=== PATIENT | female | born 1980 | race American Indian/Alaskan Native ===

== ENCOUNTER 2018-10-01 15:29 | Emergency (ER) | payer BC ==
[2018-10-01 15:58] VITALS: BP 124/74
--- NOTE | 2018-10-01 16:01 | Emergency Department Report ---
Blank Doc - Documentation Documentation: This is a 37-year-old female that presents with shortness of breathe with tigh tness chest pain. Patient denies any chest pain. PMH: DVT, PE This initial assessment diagnostic orders/clinical plan/treatment(s) is/are subject to change based on patient's health status, clinical progression and re- assessment by fellow clinical providers in the ED. Further treatment and workup at subsequent clinical providers discretion. Patient/guardians urged not to elope from ED s their condition may be serious if not clinically assessed and managed. Initial orders include: 1-Patient sent to [facility] for further evaluation and treatment 2- Labs 3- EKG
--- NOTE | 2018-10-01 16:34 | XRay Report ---
FINAL REPORT EXAM: XR CHEST ROUTINE 2V HISTORY: Dyspnea TECHNIQUE: Two view chest PA and lateral PRIORS: None. FINDINGS: Cardiac and mediastinal contours are unremarkable. No focal pulmonary infiltrate is identified. No pleural fluid collection seen. Pulmonary vasculature is unremarkable. IMPRESSION: Negative two-view chest
[2018-10-01 17:32] LABS: Basophils % (Auto) 0.6 % (0.0-1.8); Eosinophils # (Auto) 0.2 K/mm3 (0.0-0.4); Eosinophils % (Auto) 3.3 % (0.0-4.3); Hemoglobin 13.6 gm/dl (10.1-14.3); Lymphocytes # (Auto) 1.6 K/mm3 (1.2-5.4); Lymphocytes % (Auto) 31.6 % (13.4-35.0); Mean Corpuscular HGB Conc 34 % (30-34); Mean Corpuscular Volume 75 fl (79-97); Monocytes # (Auto) 0.5 K/mm3 (0.0-0.8); Monocytes % (Auto) 8.8 % (0.0-7.3); Platelet Count 216 K/mm3 (140-440); Red Blood Count 5.33 M/mm3 (3.65-5.03); Red Cell Distribution Width 14.3 % (13.2-15.2)
[2018-10-01 17:47] LABS: BUN/Creatinine Ratio 18; Blood Urea Nitrogen 11 mg/dL (7-17); Calcium 8.9 mg/dL (8.4-10.2); Creatine Kinase MB 1.4 ng/mL (0.0-4.0); Hemolysis Index 5
[2018-10-01 18:03] LABS: INR 0.94 (0.87-1.13)
[2018-10-01 18:04] LABS: Partial Thromboplastin Time 28.7 Sec. (24.2-36.6)
--- NOTE | 2018-10-01 22:45 | Emergency Department Report ---
ED Chest Pain HPI - General Chief Complaint: Dyspnea/Respdistress Stated Complaint: SOB Time Seen by Provider: 10/01/18 15:59 Source: patient Mode of arrival: Ambulatory Limitations: No Limitations - History of Present Illness Severity scale (0 -10): 0 - Related Data Previous Rx's Medication Instructions Recorded Last Taken Type Aspirin [Aspirin BABY CHEW TAB] 81 mg PO QDAY #30 tab.chew 10/01/18 Unknown Rx Allergies Allergy/AdvReac Type Severity Reaction Status Date / Time No Known Allergies Allergy Unverified 10/01/18 15:57 Heart Score - HEART Score History: Slightly suspicious EKG: Normal Age: < 45 Risk factors: No known risk factors Troponin: < normal limit HEART Score: 0 ED Review of Systems ROS: Stated complaint: SOB Other details as noted in HPI Constitutional: denies: chills, fever Eyes: denies: eye pain, eye discharge, vision change ENT: denies: ear pain, throat pain Respiratory: denies: cough, shortness of breath, wheezing Cardiovascular: chest pain. denies: palpitations Endocrine: no symptoms reported Gastrointestinal: denies: abdominal pain, nausea, diarrhea Genitourinary: denies: urgency, dysuria, discharge Musculoskeletal: denies: back pain, joint swelling, arthralgia Skin: denies: rash, lesions Neurological: denies: headache, weakness, paresthesias Psychiatric: denies: anxiety, depression Hematological/Lymphatic: denies: easy bleeding, easy bruising ED Past Medical Hx - Past Medical History Previous Medical History?: Yes Hx Deep Vein Thrombosis: Yes Hx Pulmonary Embolism: Yes - Surgical History Past Surgical History?: No - Social History Smoking Status: Never Smoker Substance Use Type: None - Medications Home Medications: Home Medications Medication Instructions Recorded Confirmed Last Taken Type Aspirin [Aspirin BABY CHEW TAB] 81 mg PO QDAY #30 tab.chew 10/01/18 Unknown Rx ED Physical Exam - General Limitations: No Limitations General appearance: alert, in no apparent distress - Head Head exam: Present: atraumatic, normocephalic, normal inspection - Eye Eye exam: Present: normal appearance, PERRL, EOMI. Absent: scleral icterus, conjunctival injection Pupils: Present: normal accommodation - ENT ENT exam: Present: normal exam, normal orophraynx, mucous membranes moist, TM's normal bilaterally - Neck Neck exam: Present: normal inspection, tenderness, full ROM - Respiratory Respiratory exam: Present: normal lung sounds bilaterally. Absent: respiratory distress, wheezes, rales, chest wall tenderness, accessory muscle use, decreased breath sounds - Cardiovascular Cardiovascular Exam: Present: regular rate, normal rhythm. Absent: systolic murmur, diastolic murmur, rubs, gallop - GI/Abdominal GI/Abdominal exam: Present: soft, normal bowel sounds. Absent: distended, tenderness, guarding, rebound, hyperactive bowel sounds, hypoactive bowel sounds, organomegaly, mass, bruit - Extremities Exam Extremities exam: Present: normal inspection, full ROM, normal capillary refill - Back Exam Back exam: Present: normal inspection, full ROM. Absent: CVA tenderness (R), CVA tenderness (L) - Neurological Exam Neurological exam: Present: alert, oriented X3, CN II-XII intact, normal gait - Psychiatric Psychiatric exam: Present: normal affect, normal mood - Skin Skin exam: Present: warm, dry, intact, normal color. Absent: rash ED Course Vital Signs 10/01/18 15:57 Temperature 99.1 F Pulse Rate 103 H Respiratory 18 Rate Blood Pressure 124/74 O2 Sat by Pulse 100 Oximetry JAYLEN score - Jaylen Score Age > 65: (0) No Aspirin use within the Past 7 Days: (0) No 3 or more CAD Risk Factors: (0) No 2 or more Angina events in past 24 hrs: (0) No Known CAD with more than 50% Stenosis: (0) No Elevated Cardiac Markers: (0) No ST Deviation Greater than 0.5mm: (0) No JAYLEN Score: 0 ED Medical Decision Making - Lab Data Result diagrams: 10/01/18 16:39 10/01/18 16:39 Critical care attestation.: If time is entered above; I have spent that time in minutes in the direct care of this critically ill patient, excluding procedure time. ED Disposition Disposition: - TO HOME OR SELFCARE Condition: Stable Instructions: Angina (ED), Chest Pain (ED), Dyspnea (ED) Prescriptions: Aspirin [Aspirin BABY CHEW TAB] 81 mg PO QDAY #30 tab.chew Referrals: JAI CLAYTON MD [Staff Physician] - 3-5 Days (Urine follow cardiology for exercise stress test)
== END 2018-10-01 22:45 | disposition home or self-care (01) ==
LOC: ED 15:29
DX: R06.00 Dyspnea, unspecified (principal); Z86.718 Personal history of other venous thrombosis and embolism; Z86.711 Personal history of pulmonary embolism
CPT/HCPCS: 36415; 71046; 80048; 82550; 82553; 84484; 85025; 85379; 85610; 85730; 93005; 93010

== ENCOUNTER 2019-02-02 06:47 | Emergency (ER) | payer BC ==
--- NOTE | 2019-02-02 09:07 | Vascular Lab Report ---
PROCEDURE: VL VENOUS DUPLEX LE LT TECHNIQUE: Grayscale, color and spectral Doppler ultrasound evaluation of the left lower extremity f or DVT HISTORY: pain, swelling COMPARISONS: None FINDINGS: The deep veins in the left lower extremity above the knee demonstrate normal compression, color Doppl er appearance and spectral Doppler waveforms. Normal respiratory variation and response to augmentati on also demonstrated above the knee (where performed.) There is noncompressibility demonstrated in th e proximal left posterior tibial vein. IMPRESSION: Thrombosis of the proximal left posterior tibial vein. No sonographic evidence of DVT in the imaged portions of the left lower extremity above the knee. Dr. Pedraza discussed findings with Dr. Starr at 0804 [address] Time on 02/02/2019 immediately following the examination. This document is electronically signed by Jose Pedraza MD., February 02 2019 09:05:46 AM ET
--- NOTE | 2019-02-02 09:35 | Emergency Department Report ---
ED Extremity Problem HPI - General Chief complaint: Extremity Problem,Nontraumatic Stated complaint: LT LEG SWELLING Time Seen by Provider: 02/02/19 08:48 Source: patient Mode of arrival: Ambulatory Limitations: No Limitations - History of Present Illness Initial comments: Patient is a 38-year-old Female who has a past history of a DVT 7 years ago during who is presenting with left calf pain. Patient states pain started 2-3 days ago. She does notice some subjective swelling. States the pain is a 6 out of 10 in severity and doesn't radiate down to her ankle. Patient denies any chest pain shortness of breath fevers chills or trauma. Improves with: nothing Worsens with: walking - Related Data Previous Rx's Medication Instructions Recorded Last Taken Type Aspirin [Aspirin BABY CHEW TAB] 81 mg PO QDAY #30 tab.chew 10/01/18 Unknown Rx Apixaban [Eliquis] 5 mg PO BID #45 tablet 02/02/19 Unknown Rx traMADol [Ultram] 50 mg PO Q6HR PRN #15 tablet 02/02/19 Unknown Rx Allergies Allergy/AdvReac Type Severity Reaction Status Date / Time No Known Allergies Allergy Unverified 10/01/18 15:57 ED Review of Systems ROS: Stated complaint: LT LEG SWELLING Other details as noted in HPI Comment: All other systems reviewed and negative ED Past Medical Hx - Past Medical History Previous Medical History?: Yes Hx Deep Vein Thrombosis: Yes Hx Pulmonary Embolism: Yes - Surgical History Past Surgical History?: No - Social History Smoking Status: Never Smoker Substance Use Type: None - Medications Home Medications: Home Medications Medication Instructions Recorded Confirmed Last Taken Type Aspirin [Aspirin BABY CHEW TAB] 81 mg PO QDAY #30 tab.chew 10/01/18 Unknown Rx Apixaban [Eliquis] 5 mg PO BID #45 tablet 02/02/19 Unknown Rx traMADol [Ultram] 50 mg PO Q6HR PRN #15 tablet 02/02/19 Unknown Rx ED Physical Exam - General Limitations: No Limitations General appearance: alert, in no apparent distress - Head Head exam: Present: atraumatic, normocephalic - Eye Eye exam: Present: normal appearance - ENT ENT exam: Present: mucous membranes moist - Neck Neck exam: Present: normal inspection - Respiratory Respiratory exam: Present: normal lung sounds bilaterally. Absent: respiratory distress, wheezes, rales, rhonchi - Cardiovascular Cardiovascular Exam: Present: regular rate, normal rhythm. Absent: systolic murmur, diastolic murmur, rubs, gallop - GI/Abdominal GI/Abdominal exam: Present: soft, normal bowel sounds. Absent: distended, tenderness, guarding, rebound - Extremities Exam Extremities exam: Present: normal inspection - Expanded Lower Extremity Exam Left Lower Leg exam: Present: full ROM, tenderness (on palpation). Absent: swelling, abrasion, ecchymosis, deformity, crepidus, erythema, palpable cord - Back Exam Back exam: Present: normal inspection - Neurological Exam Neurological exam: Present: alert, oriented X3 - Psychiatric Psychiatric exam: Present: normal affect, normal mood - Skin Skin exam: Present: warm, dry, intact, normal color. Absent: rash ED Medical Decision Making - Radiology Data [facility] [address] [place] [address] Vascular Lab Report Signed Patient: DORIS PATINO MR#: [id number] 5 : 1980 Acct:[id number] Age/Sex: 38 / F ADM Date: 02/02/19 Loc: ED Attending Dr: Ordering Physician: DANIEL STARR MD Date of Service: 02/02/19 Procedure(s): venous duplex LE LT Accession Number(s): [id number] cc: DANIEL STARR MD PROCEDURE: VENOUS DUPLEX LE LT TECHNIQUE: Grayscale, color and spectral Doppler ultrasound evaluation of the left lower extremity for DVT HISTORY: pain, swelling COMPARISONS: None FINDINGS: The deep veins in the left lower extremity above the knee demonstrate normal compression, color Doppler appearance and spectral Doppler waveforms. Normal respiratory variation and response to augmentation also demonstrated above the knee (where performed.) There is noncompressibility demonstrated in the proximal left posterior tibial vein. IMPRESSION: Thrombosis of the proximal left posterior tibial vein. No sonographic evidence of DVT in the imaged portions of the left lower extremity above the knee. Dr. Hoang discussed findings with Dr. Starr at [address] Time on 02/02/2019 immediately following the examination. This document is electronically signed by Jose Hoang MD., February 02 2019 09:05:46 AM ET Transcribed By: MB Dictated By: JOSE HOANG MD Electronically Authenticated By: JOSE HOANG MD Signed Date/Time: 02/02/19906 DD/ 0 TD/TT: 02/02/19841 - Medical Decision Making Patient does show evidence of a proximal posterior tibial DVT. Patient started on liquids and she'll be given follow-up with primary care. Critical care attestation.: If time is entered above; I have spent that time in minutes in the direct care of this critically ill patient, excluding procedure time. ED Disposition Clinical Impression: Acute DVT (deep venous thrombosis) Qualifiers: DVT location: lower extremity Affected thrombotic vein of extremity: tibial Laterality: left Qualified Code(s): I82.442 - Acute embolism and thrombosis of left tibial vein Disposition: - TO HOME OR SELFCARE Is pt being admited?: No Does the pt Need Aspirin: No Condition: Stable Referrals: ELLY MOODY MD [Staff Physician] - 3-5 Days Forms: Work/School Release Form(ED) Time of Disposition: 09:32
== END 2019-02-02 09:53 | disposition home or self-care (01) ==
LOC: ED 06:47
DX: I82.4Z2 Acute embolism and thrombosis of unspecified deep veins of left distal lower extremity (principal); Z79.82 Long term (current) use of aspirin; Z79.899 Other long term (current) drug therapy
CPT/HCPCS: 99283

== ENCOUNTER 2019-02-10 05:01 | Emergency (ER) | payer BC ==
[2019-02-10 05:42] LABS: Basophils % (Auto) 0.5 % (0.0-1.8); Eosinophils # (Auto) 0.2 K/mm3 (0.0-0.4); Eosinophils % (Auto) 4.6 % (0.0-4.3); Hematocrit 40.9 % (30.3-42.9); Hemoglobin 13.8 gm/dl (10.1-14.3); Lymphocytes # (Auto) 1.5 K/mm3 (1.2-5.4); Lymphocytes % (Auto) 28.2 % (13.4-35.0); Mean Corpuscular HGB Conc 34 % (30-34); Mean Corpuscular Volume 75 fl (79-97); Monocytes # (Auto) 0.5 K/mm3 (0.0-0.8); Monocytes % (Auto) 9.2 % (0.0-7.3); Platelet Count 285 K/mm3 (140-440); Red Blood Count 5.43 M/mm3 (3.65-5.03); Red Cell Distribution Width 14.2 % (13.2-15.2)
[2019-02-10 05:43] LABS: Bilirubin,Urine NEG (Negative); Blood,Urine NEG (Negative); Color,Urine Yellow (Yellow); Protein,Urine <15 mg/dL mg/dL (Negative); Urobilinogen,Urine < 2.0 mg/dL (<2.0); WBC,Urine < 1.0 /HPF (0.0-6.0)
[2019-02-10 06:03] LABS: Alanine Aminotransferase 8 units/L (7-56); Albumin 4.2 g/dL (3.9-5); BUN/Creatinine Ratio 14; Blood Urea Nitrogen 10 mg/dL (7-17); Calcium 9.2 mg/dL (8.4-10.2); Hemolysis Index 11
[2019-02-10] MEDS ORDERED: TORADOL IV ONE (07:18)
[2019-02-10] MEDS ORDERED: NACL 0.9% 1000 ML 1,000 ML IV ONE (07:18)
--- NOTE | 2019-02-10 08:31 | Emergency Department Report ---
ED Abdominal Pain HPI - General Chief Complaint: Abdominal Pain Stated Complaint: LOWER ABD PAIN Time Seen by Provider: 02/10/19 07:11 Source: patient Mode of arrival: Ambulatory Limitations: No Limitations - History of Present Illness Initial Comments: Patient is a 38-year-old female who presents to emergency room with complaints of suprapubic and right lower quadrant abdominal pain that began 4 days ago. She denies any nausea, vomiting, diarrhea, urinary symptoms, vaginal discharge or vaginal irritation. She states she had a normal bowel movement Yesterday. denies allergies to medications. Past medical history of DVT and on eliquis per patient. Her only abdominal surgery is a tubal ligation. Last menstrual cycle was January 31. Severity scale (0 -10): 9 - Related Data Previous Rx's Medication Instructions Recorded Last Taken Type Aspirin [Aspirin BABY CHEW TAB] 81 mg PO QDAY #30 tab.chew 10/01/18 Unknown Rx Apixaban [Eliquis] 5 mg PO BID #45 tablet 02/02/19 Unknown Rx traMADol [Ultram] 50 mg PO Q6HR PRN #15 tablet 02/02/19 Unknown Rx Docusate Sodium [Colace] 100 mg PO BID PRN #20 capsule 02/10/19 Unknown Rx Polyethylene Glycol 3350 [Miralax] 7 gm PO DAILY #1 powder 02/10/19 Unknown Rx Allergies Allergy/AdvReac Type Severity Reaction Status Date / Time No Known Allergies Allergy Unverified 10/01/18 15:57 ED Review of Systems ROS: Stated complaint: LOWER ABD PAIN Other details as noted in HPI Comment: All other systems reviewed and negative ED Past Medical Hx - Past Medical History Previous Medical History?: Yes Hx Deep Vein Thrombosis: Yes Hx Pulmonary Embolism: Yes - Surgical History Past Surgical History?: No - Social History Smoking Status: Never Smoker Substance Use Type: None - Medications Home Medications: Home Medications Medication Instructions Recorded Confirmed Last Taken Type Aspirin [Aspirin BABY CHEW TAB] 81 mg PO QDAY #30 tab.chew 10/01/18 Unknown Rx Apixaban [Eliquis] 5 mg PO BID #45 tablet 02/02/19 Unknown Rx traMADol [Ultram] 50 mg PO Q6HR PRN #15 tablet 02/02/19 Unknown Rx Docusate Sodium [Colace] 100 mg PO BID PRN #20 capsule 02/10/19 Unknown Rx Polyethylene Glycol 3350 [Miralax] 7 gm PO DAILY #1 powder 02/10/19 Unknown Rx ED Physical Exam - General Limitations: No Limitations General appearance: alert, in no apparent distress - Head Head exam: Present: atraumatic, normocephalic - Eye Eye exam: Present: normal appearance, PERRL - ENT ENT exam: Present: mucous membranes moist - Respiratory Respiratory exam: Present: normal lung sounds bilaterally. Absent: respiratory distress, wheezes, rales, rhonchi, stridor, chest wall tenderness, accessory muscle use, decreased breath sounds, prolonged expiratory - Cardiovascular Cardiovascular Exam: Present: regular rate, normal rhythm, normal heart sounds. Absent: systolic murmur, diastolic murmur, rubs, gallop - GI/Abdominal GI/Abdominal exam: Present: soft, tenderness (suprapubic, RLQ), normal bowel sounds. Absent: distended, guarding, rebound, rigid - Back Exam Back exam: Absent: CVA tenderness (R), CVA tenderness (L) - Neurological Exam Neurological exam: Present: alert, oriented X3 - Psychiatric Psychiatric exam: Present: normal affect, normal mood - Skin Skin exam: Present: warm, dry, intact ED Course Vital Signs 02/10/19 02/10/19 02/10/19 05:04 07:33 07:35 Temperature 98.2 F Pulse Rate 97 H Respiratory 18 18 18 Rate Blood Pressure 122/74 Blood Pressure [Left] O2 Sat by Pulse 100 99 Oximetry 02/10/19 09:00 Temperature 98.3 F Pulse Rate 70 Respiratory 16 Rate Blood Pressure Blood Pressure 113/74 [Left] O2 Sat by Pulse 99 Oximetry ED Medical Decision Making - Lab Data Result diagrams: 02/10/19 05:24 02/10/19 05:24 Lab Results 02/10/19 02/10/19 02/10/19 Range/Units 05:24 05:24 05:24 WBC 5.4 (4.5-11.0) K/mm3 RBC 5.43 H (3.65-5.03) M/mm3 Hgb 13.8 (10.1-14.3) gm/dl Hct 40.9 (30.3-42.9) % MCV 75 L (79-97) fl MCH 25 L (28-32) pg MCHC 34 (30-34) % RDW 14.2 (13.2-15.2) % Plt Count 285 (140-440) K/mm3 Lymph % (Auto) 28.2 (13.4-35.0) % [place] % (Auto) 9.2 H (0.0-7.3) % Eos % (Auto) 4.6 H (0.0-4.3) % Baso % (Auto) 0.5 (0.0-1.8) % Lymph # 1.5 (1.2-5.4) K/mm3 [place] # 0.5 (0.0-0.8) K/mm3 Eos # 0.2 (0.0-0.4) K/mm3 Baso # 0.0 (0.0-0.1) K/mm3 Seg Neutrophils % 57.5 (40.0-70.0) % Seg Neutrophils # 3.1 (1.8-7.7) K/mm3 Sodium 140 (137-145) mmol/L Potassium 4.1 (3.6-5.0) mmol/L Chloride 103.7 (98-107) mmol/L Carbon Dioxide 25 (22-30) mmol/L Anion Gap 15 mmol/L BUN 10 (7-17) mg/dL Creatinine 0.7 (0.7-1.2) mg/dL Estimated GFR > 60 ml/min BUN/Creatinine Ratio 14 % Glucose 111 H (65-100) mg/dL Calcium 9.2 (8.4-10.2) mg/dL Total Bilirubin 0.20 (0.1-1.2) mg/dL AST 10 (5-40) units/L ALT 8 (7-56) units/L Alkaline Phosphatase 93 (35-129) units/L Total Protein 7.3 (6.3-8.2) g/dL Albumin 4.2 (3.9-5) g/dL Albumin/Globulin Ratio 1.4 % HCG, Qual (Negative) Urine Color Yellow (Yellow) Urine Turbidity Clear (Clear) Urine pH 6.0 (5.0-7.0) Ur Specific [place] 1.015 (1.003-1.030) Urine Protein <15 mg/dl (Negative) mg/dL Urine Glucose (UA) Neg (Negative) mg/dL Urine Ketones Neg (Negative) mg/dL Urine Blood Neg (Negative) Urine Nitrite Neg (Negative) Urine Bilirubin Neg (Negative) Urine Urobilinogen < 2.0 (<2.0) mg/dL Ur Leukocyte Esterase Neg (Negative) Urine WBC (Auto) < 1.0 (0.0-6.0) /HPF Urine RBC (Auto) 2.0 (0.0-6.0) /HPF U Epithel Cells (Auto) 1.0 (0-13.0) /HPF 02/10/19 Range/Units 05:24 WBC (4.5-11.0) K/mm3 RBC (3.65-5.03) M/mm3 Hgb (10.1-14.3) gm/dl Hct (30.3-42.9) % MCV (79-97) fl MCH (28-32) pg MCHC (30-34) % RDW (13.2-15.2) % Plt Count (140-440) K/mm3 Lymph % (Auto) (13.4-35.0) % [place] % (Auto) (0.0-7.3) % Eos % (Auto) (0.0-4.3) % Baso % (Auto) (0.0-1.8) % Lymph # (1.2-5.4) K/mm3 [place] # (0.0-0.8) K/mm3 Eos # (0.0-0.4) K/mm3 Baso # (0.0-0.1) K/mm3 Seg Neutrophils % (40.0-70.0) % Seg Neutrophils # (1.8-7.7) K/mm3 Sodium (137-145) mmol/L Potassium (3.6-5.0) mmol/L Chloride (98-107) mmol/L Carbon Dioxide (22-30) mmol/L Anion Gap mmol/L BUN (7-17) mg/dL Creatinine (0.7-1.2) mg/dL Estimated GFR ml/min BUN/Creatinine Ratio % Glucose (65-100) mg/dL Calcium (8.4-10.2) mg/dL Total Bilirubin (0.1-1.2) mg/dL AST (5-40) units/L ALT (7-56) units/L Alkaline Phosphatase (35-129) units/L Total Protein (6.3-8.2) g/dL Albumin (3.9-5) g/dL Albumin/Globulin Ratio % HCG, Qual Negative (Negative) Urine Color (Yellow) Urine Turbidity (Clear) Urine pH (5.0-7.0) Ur Specific [place] (1.003-1.030) Urine Protein (Negative) mg/dL Urine Glucose (UA) (Negative) mg/dL Urine Ketones (Negative) mg/dL Urine Blood (Negative) Urine Nitrite (Negative) Urine Bilirubin (Negative) Urine Urobilinogen (<2.0) mg/dL Ur Leukocyte Esterase (Negative) Urine WBC (Auto) (0.0-6.0) /HPF Urine RBC (Auto) (0.0-6.0) /HPF U Epithel Cells (Auto) (0-13.0) /HPF Vital Signs 02/10/19 02/10/19 02/10/19 05:04 07:33 07:35 Temperature 98.2 F Pulse Rate 97 H Respiratory 18 18 18 Rate Blood Pressure 122/74 Blood Pressure [Left] O2 Sat by Pulse 100 99 Oximetry 02/10/19 09:00 Temperature 98.3 F Pulse Rate 70 Respiratory 16 Rate Blood Pressure Blood Pressure 113/74 [Left] O2 Sat by Pulse 99 Oximetry - Radiology Data Radiology results: report reviewed, image reviewed CT ABDOMEN AND PELVIS WITH CONTRAST HISTORY: RLQ and suprapubic pain. Right upper quadrant pain for 2 days COMPARISON: None. TECHNIQUE: CT images of the abdomen and pelvis were obtained following administration of intravenous contrast. All CT scans at this location are performed using CT dose reduction for ALARA by means of automated exposure control. CONTRAST: 100 ml of intravenous contrast administered. FINDINGS: Lungs/bones: The lung bases are clear. Normal heart size. Normal bony structures. Abdomen/pelvis: The uterus is mildly enlarged. The uterus is anteverted. A 4.8 cm hypodense round mass is identified in the anterior wall consistent with a fibroid. No additional fibroids are identified. The endometrium and ovaries are unremarkable. Normal liver, biliary system, pancreas, spleen, kidneys, adrenal glands and bladder. The bowel loops are normal caliber and wall thickness. No obstruction or focal inflammation is identified. Normal appendix. No evidence for bulky adenopathy, ascites or free air. IMPRESSION: Uterine fibroid as described. No acute process is identified in the abdomen or pelvis. Signer Name: Isrrael Cantu Jr, MD Signed: 02/10/2019 7:37 AM Workstation Name: [id number] Transcribed By: REF Dictated By: SONAL GHOSH MD Electronically Authenticated By: SONAL GHOSH MD Signed Date/Time: 02/10/19 073 - Medical Decision Making Patient is a 38-year-old female who presents to emergency room with complaints of suprapubic and right lower quadrant abdominal pain that began 4 days ago. She denies any nausea, vomiting, diarrhea, urinary symptoms, vaginal discharge or vaginal irritation. She states she had a normal bowel movement Yesterday. denies allergies to medications. Past medical history of DVT and on eliquis per patient. Her only abdominal surgery is a tubal ligation. Last menstrual cycle was January 31. on exam: TTP of the suprapubic and RLQ, no guarding, no rebound, no peritoneal signs, normal BS, no CVAT. VSS. labs WNL. UA is normal. CT abd pelvis with IV contrast shows uterine fibroid and constipation. pt given prescription for colace and miralax. advised to please take medication as prescribed. Drink plenty of water and eat a high-fiber diet. Follow up with a primary care doctor and [facility] in the next 2-3 days. Return to the emergency room for any new or worsening symptoms. - Differential Diagnosis appendicitis, colitis, UTI, pyelonephritis, constipation, SBO, ovarian cyst Critical care attestation.: If time is entered above; I have spent that time in minutes in the direct care of this critically ill patient, excluding procedure time. ED Disposition Clinical Impression: Abdominal pain Qualifiers: Abdominal location: lower abdomen, unspecified Qualified Code(s): R10.30 - Lower abdominal pain, unspecified Uterine fibroid Qualifiers: Uterine leiomyoma location: unspecified location Qualified Code(s): D25.9 - Leiomyoma of uterus, unspecified Constipation Qualifiers: Constipation type: unspecified constipation type Qualified Code(s): K59.00 - Constipation, unspecified Disposition: -01 TO HOME OR SELFCARE Is pt being admited?: No Does the pt Need Aspirin: No Condition: Stable Instructions: Uterine Fibroids (ED), Constipation (ED), High Fiber Diet (ED) Additional Instructions: Please take medication as prescribed. Drink plenty of water and eat a high- fiber diet. Follow up with a primary care doctor and HE[facility] FINISHER in the next 2-3 days. Return to the emergency room for any new or worsening symptoms. Prescriptions: Docusate Sodium [Colace] 100 mg PO BID PRN #20 capsule PRN Reason: Constipation Polyethylene Glycol 3350 [Miralax] 7 gm PO DAILY #1 powder Referrals: PRIMARY CARE, [Primary Care Provider] - 2-3 Days ISRRAEL LEVY MD [Staff Physician] - 2-3 Days Time of Disposition: 08:43 Print Language: CITIZEN OF [place]
--- NOTE | 2019-02-10 08:41 | Cat Scan Report ---
CT ABDOMEN AND PELVIS WITH CONTRAST HISTORY: RLQ and suprapubic pain. Right upper quadrant pain for 2 days COMPARISON: None. TECHNIQUE: CT images of the abdomen and pelvis were obtained following administration of intravenous contrast. All CT scans at this location are performed using CT dose reduction for ALARA by means of automated exposure control. CONTRAST: 100 ml of intravenous contrast administered. FINDINGS: Lungs/bones: The lung bases are clear. Normal heart size. Normal bony structures. Abdomen/pelvis: The uterus is mildly enlarged. The uterus is anteverted. A 4.8 cm hypodense round ma ss is identified in the anterior wall consistent with a fibroid. No additional fibroids are identifie d. The endometrium and ovaries are unremarkable. Normal liver, biliary system, pancreas, spleen, kidneys, adrenal glands and bladder. The bowel loops are normal caliber and wall thickness. No obstruction or focal inflammation is identi fied. Normal appendix. No evidence for bulky adenopathy, ascites or free air. IMPRESSION: Uterine fibroid as described. No acute process is identified in the abdomen or pelvis. Signer Name: Isrrael Cantu Jr, MD Signed: 02/10/2019 7:37 AM Workstation Name: [id number]
[2019-02-10 09:00] VITALS: BP 113/74
== END 2019-02-10 09:00 | disposition home or self-care (01) ==
LOC: ED 05:01
DX: K59.00 Constipation, unspecified (principal); D25.9 Leiomyoma of uterus, unspecified; Z86.718 Personal history of other venous thrombosis and embolism; Z98.51 Tubal ligation status; Z79.82 Long term (current) use of aspirin; Z79.899 Other long term (current) drug therapy; Z86.711 Personal history of pulmonary embolism
CPT/HCPCS: 36415; 74177; 80053; 81001; 84703; 85025; 96374; 99284; J1885; J7030; Q9967

== ENCOUNTER 2019-02-19 06:17 | Outpatient (CLI) | payer BC ==
[2019-02-22 11:28] LABS: Protein S, Free 28 % normal (50-147); Protein S, Total 81 % normal (70-140)
== END 2019-02-19 06:18 | disposition home or self-care (01) ==
LOC: LAB 06:17
PROVIDERS: ATTEND Family Medicine
DX: Z00.00 Encounter for general adult medical examination without abnormal findings (principal)
CPT/HCPCS: 36415; 85301; 85305